=== PATIENT | female | born 1975 | race Hispanic/Latino ===

== ENCOUNTER 2020-11-17 20:02 | Emergency (ER) | payer OTHER | END 2020-11-17 21:11 | disposition home or self-care (01) | LOC: CSHERS 20:02 | DX: S61.211A Laceration without foreign body of left index finger without damage to nail, initial encounter (principal); J45.909 Unspecified asthma, uncomplicated; Z79.52 Long term (current) use of systemic steroids; W25.XXXA Contact with sharp glass, initial encounter | CPT/HCPCS: 12001; 93005; 93010 ==